=== PATIENT | male | born 1990 | race Hispanic/Latino ===

== ENCOUNTER 2018-03-22 06:25 | Emergency (ER) | payer SELFPAY ==
--- NOTE | 2018-03-22 07:30 | Emergency Department Report ---
HPI - General Chief Complaint: Altered Mental Status Time Seen by Provider: 03/22/18 07:11 - [facility] HPI: Room 24 The patient is a 27-year-old male presenting with chief complaint of altered mental status. The patient was brought in by EMS reportedly for altered mental status. No EMS run sheet was left to provide details. The patient states he was sitting on the side of a gas station waiting for it to open when EMS brought him to the hospital. Patient admits to methamphetamine use and not sleeping for the past 3-4 days. Patient denies any complaints currently. When asked how he is feeling the patient replies he feels "good." Location: Mental state Duration: [See above] Quality: "Altered" Severity: Unknown Modifying factors: [see above] Context: [see above] Mode of transportation: [not driving] ED Past Medical Hx - Past Medical History Previous Medical History?: No Hx Psychiatric Treatment: Yes - Surgical History Past Surgical History?: No - Family History Family history: no significant - Social History Smoking Status: Current Every Day Smoker (1 pack per day) Substance Use Type: Alcohol (rarely), Methamphetamines (IV and smokes) ED Review of Systems ROS: Stated complaint: AMS Other details as noted in HPI Constitutional: no symptoms reported Eyes: denies: eye pain ENT: denies: throat pain Cardiovascular: denies: chest pain Gastrointestinal: denies: abdominal pain Genitourinary: denies: dysuria Musculoskeletal: denies: back pain Neurological: denies: headache Physical Exam - Physical Exam Vital Signs: Vital Signs 03/22/18 07:09 Temperature 97.7 F Pulse Rate 60 Blood Pressure 107/68 O2 Sat by Pulse 99 Oximetry Vital Signs 03/22/18 03/22/18 03/22/18 07:01 07:09 07:16 Temperature 97.7 F Pulse Rate 60 64 Respiratory 11 L 17 Rate Blood Pressure 107/68 107/68 O2 Sat by Pulse 99 100 Oximetry 03/22/18 03/22/18 03/22/18 07:30 07:55 08:00 Temperature Pulse Rate 53 L 58 L Respiratory 16 11 L Rate Blood Pressure 112/66 105/71 96/64 O2 Sat by Pulse 99 100 100 Oximetry 03/22/18 03/22/18 03/22/18 08:16 08:30 08:46 Temperature Pulse Rate 72 60 60 Respiratory 16 18 16 Rate Blood Pressure 96/64 96/64 96/64 O2 Sat by Pulse 100 100 100 Oximetry 03/22/18 03/22/18 03/22/18 09:00 09:16 09:30 Temperature Pulse Rate 52 L 55 L 47 L Respiratory 13 13 14 Rate Blood Pressure 96/64 96/64 96/64 O2 Sat by Pulse 100 100 100 Oximetry 03/22/18 03/22/18 03/22/18 09:46 10:00 10:16 Temperature Pulse Rate 56 L 48 L 98 H Respiratory 15 12 22 Rate Blood Pressure 96/64 119/65 119/65 O2 Sat by Pulse 99 100 100 Oximetry Physical Exam: GENERAL: The patient is well-developed male lying on stretcher not appearing to be in acute distress HEENT: Normocephalic. Atraumatic. Extraocular motions are intact. Patient has moist mucous membranes. NECK: Supple. No meningitic signs are noted. Trachea midline CHEST/LUNGS: Clear to auscultation. There is no respiratory distress noted. HEART/CARDIOVASCULAR: Regular. There is no tachycardia. There is no gallop rub or murmur. ABDOMEN: Abdomen is soft, nontender. Patient has normal bowel sounds. There is no abdominal distention. SKIN: There is no rash. There is no diaphoresis. NEURO: The patient is awake, alert, and oriented. The patient is cooperative. The patient has no focal neurologic deficits. The patient has normal speech. Cranial nerves II through XII grossly intact, no drift MUSCULOSKELETAL: There is no evidence of acute injury. ED Course Vital Signs 03/22/18 07:09 Temperature 97.7 F Pulse Rate 60 Blood Pressure 107/68 O2 Sat by Pulse 99 Oximetry ED Medical Decision Making - Lab Data Result diagrams: 03/22/18 08:00 03/22/18 08:00 Laboratory Tests 03/22/18 03/22/18 03/22/18 08:00 08:00 08:00 WBC 8.7 RBC 4.44 Hgb 13.5 Hct 40.0 MCV 90 MCH 30 MCHC 34 RDW 13.1 L Plt Count 216 Lymph % (Auto) 25.0 [place] % (Auto) 9.0 H Eos % (Auto) 3.6 Baso % (Auto) 1.0 Lymph # 2.2 [place] # 0.8 Eos # 0.3 Baso # 0.1 Seg Neutrophils % 61.4 Seg Neutrophils # 5.3 Sodium 140 Potassium 3.7 Chloride 100.8 Carbon Dioxide 23 Anion Gap 20 BUN 20 Creatinine 0.9 Estimated GFR > 60 BUN/Creatinine Ratio 22 Glucose 82 Calcium 9.3 Total Bilirubin 0.70 AST 26 ALT 22 Alkaline Phosphatase 63 Total Creatine Kinase 904 H CK-MB (CK-2) 7.6 H CK-MB (CK-2) Rel Index 0.8 Troponin T < 0.010 Total Protein 7.0 Albumin 4.2 Albumin/Globulin Ratio 1.5 Urine Color Urine Turbidity Urine pH Ur Specific [place] Urine Protein Urine Glucose (UA) Urine Ketones Urine Blood Urine Nitrite Urine Bilirubin Urine Urobilinogen Ur Leukocyte Esterase Urine WBC (Auto) Urine RBC (Auto) Urine Mucus Urine Sperm Urine Opiates Screen Urine Methadone Screen Ur Barbiturates Screen Ur Phencyclidine Scrn Ur Amphetamines Screen U Benzodiazepines Scrn Urine Cocaine Screen U Marijuana (THC) Screen Drugs of Abuse Note Plasma/Serum Alcohol 03/22/18 03/22/18 03/22/18 08:00 08:29 08:29 WBC RBC Hgb Hct MCV MCH MCHC RDW Plt Count Lymph % (Auto) [place] % (Auto) Eos % (Auto) Baso % (Auto) Lymph # [place] # Eos # Baso # Seg Neutrophils % Seg Neutrophils # Sodium Potassium Chloride Carbon Dioxide Anion Gap BUN Creatinine Estimated GFR BUN/Creatinine Ratio Glucose Calcium Total Bilirubin AST ALT Alkaline Phosphatase Total Creatine Kinase CK-MB (CK-2) CK-MB (CK-2) Rel Index Troponin T Total Protein Albumin Albumin/Globulin Ratio Urine Color Yellow Urine Turbidity Hazy Urine pH 5.0 Ur Specific [place] 1.031 H Urine Protein 100 mg/dl Urine Glucose (UA) Neg Urine Ketones 20 Urine Blood Neg Urine Nitrite Neg Urine Bilirubin Neg Urine Urobilinogen < 2.0 Ur Leukocyte Esterase Neg Urine WBC (Auto) 8.0 H Urine RBC (Auto) 12.0 Urine Mucus 2+ Urine Sperm 3+ Urine Opiates Screen Presumptive negative Urine Methadone Screen Presumptive negative Ur Barbiturates Screen Presumptive negative Ur Phencyclidine Scrn Presumptive negative Ur Amphetamines Screen Presumptive positive U Benzodiazepines Scrn Presumptive negative Urine Cocaine Screen Presumptive negative U Marijuana (THC) Screen Presumptive positive Drugs of Abuse Note Disclamer Plasma/Serum Alcohol < 0.01 - EKG Data -: EKG Interpreted by [place] EKG shows normal: sinus rhythm Rate: bradycardia (54 bpm) - EKG Data Interpretation: nonspecific ST-T wave mason (biphasic T-wave in lead V2.) - Radiology Data Radiology results: report reviewed (CT head), image reviewed (CT head) [facility] [address] [place] [address] Cat Scan Report Signed Patient: FRANCOIS OAKLEY MR#: [id number] : 1990 Acct:[id number] Age/Sex: 27 / M ADM Date: 03/22/18 Loc: ED Attending Dr: Ordering Physician: LINSEY TOVAR MD Date of Service: 03/22/18 Procedure(s): CT head/brain wo con Accession Number(s): [id number] cc: LINSEY TOVAR MD FINAL REPORT EXAM: CT HEAD/BRAIN WO CON HISTORY: altered mental status TECHNIQUE: Routine axial imaging was obtained of the brain without IV contrast. FINDINGS: The ventricular system is appropriate in size and is symmetric. There is no evidence of acute stroke or hemorrhage. The visualized sinuses are clear. The mastoid air cells are well pneumatized. The calvarium appears intact. IMPRESSION: Within normal limits. Transcribed By: RB Dictated By: ADDIE ZAPIEN MD Electronically Authenticated By: ADDIE ZAPIEN MD Signed Date/Time: 03/22/18753 DD/ 3 TD/TT: 03/22/18753 - Differential Diagnosis methamphetamine use, rhabdomyolysis, dehydration, ICH Critical care attestation.: If time is entered above; I have spent that time in minutes in the direct care of this critically ill patient, excluding procedure time. ED Disposition Clinical Impression: Polysubstance abuse Disposition: DC-01 TO HOME OR SELFCARE Is pt being admited?: No Does the pt Need Aspirin: No Condition: Stable Additional Instructions: Return to the emergency department immediately should you develop worsening symptoms, fever, inability to tolerate food or liquid or any other concerns. Referrals: PRIMARY CAREMD [Primary Care Provider] - 3-5 Days Time of Disposition: 12:51 (dispo per Social work)
--- NOTE | 2018-03-22 07:57 | Cat Scan Report ---
FINAL REPORT EXAM: CT HEAD/BRAIN WO CON HISTORY: altered mental status TECHNIQUE: Routine axial imaging was obtained of the brain without IV contrast. FINDINGS: The ventricular system is appropriate in size and is symmetric. There is no evidence of acute stroke or hemorrhage. The visualized sinuses are clear. The mastoid air cells are well pneumatized. The calvarium appears intact. IMPRESSION: Within normal limits.
[2018-03-22 08:28] LABS: Basophils # (Auto) 0.1 K/mm3 (0.0-0.1); Eosinophils # (Auto) 0.3 K/mm3 (0.0-0.4); Eosinophils % (Auto) 3.6 % (0.0-4.3); Hemoglobin 13.5 gm/dl (11.8-15.2); Lymphocytes # (Auto) 2.2 K/mm3 (1.2-5.4); Mean Corpuscular HGB Conc 34 % (32-34); Mean Corpuscular Hemoglobin 30 pg (28-32); Mean Corpuscular Volume 90 fl (84-94); Monocytes # (Auto) 0.8 K/mm3 (0.0-0.8); Platelet Count 216 K/mm3 (140-440); Red Blood Count 4.44 M/mm3 (3.65-5.03); Red Cell Distribution Width 13.1 % (13.2-15.2)
[2018-03-22 08:45] LABS: Creatine Kinase MB 7.6 ng/mL (0.0-4.0)
[2018-03-22 08:46] LABS: Alanine Aminotransferase 22 units/L (7-56); Albumin 4.2 g/dL (3.9-5); BUN/Creatinine Ratio 22; Blood Urea Nitrogen 20 mg/dL (9-20); Calcium 9.3 mg/dL (8.4-10.2); Hemolysis Index 8
[2018-03-22 08:51] LABS: Bilirubin,Urine NEG (Negative); Blood,Urine NEG (Negative); Color,Urine Yellow (Yellow); Mucus,Urine 2+ /HPF; Sperm,Urine 3+ /HPF (NP); Urobilinogen,Urine < 2.0 mg/dL (<2.0)
[2018-03-22 09:36] LABS: Benzodiazepines Screen,Urine PRESUMPTIVE NEGATIVE; Cocaine Screen,Urine PRESUMPTIVE NEGATIVE; Methadone Screen,Urine PRESUMPTIVE NEGATIVE; Opiate Screen,Urine PRESUMPTIVE NEGATIVE
[2018-03-22 09:50] LABS: Amphetamine Screen,Urine PRESUMPTIVE POSITIVE; Cannabinoid Screen,Urine PRESUMPTIVE POSITIVE
[2018-03-22 10:29] VITALS: BP 119/65
== END 2018-03-22 14:11 | disposition home or self-care (01) ==
LOC: ED 06:25
DX: R41.82 Altered mental status, unspecified (principal); F19.10 Other psychoactive substance abuse, uncomplicated; F15.10 Other stimulant abuse, uncomplicated; F17.200 Nicotine dependence, unspecified, uncomplicated
CPT/HCPCS: 36415; 70450; 80053; 80307; 81001; 82550; 82553; 84484; 85025; 93005; 93010; 99284; G0480; 80320